=== PATIENT | male | born 1930 | race Caucasian/White ===

== ENCOUNTER → 2020-04-16 | Outpatient (CLI) | payer BC ==
--- NOTE | 2020-04-16 10:53 | RAD ---
Three-view right knee dated 04/16/2020. No comparison available. Clinical data indication: Right knee pain for 4 days. FINDINGS: 3 views the right knee show normal bony alignment. No displaced fracture. No acute osseous or articular abnormality. Vascular calcinosis. Possible small joint effusion. IMPRESSION: 1. No acute bony abnormality. 2. Possible small joint effusion. Electronically signed by: Yoan Dodd MD (04/16/2020 10:50 AM) [id number]
== END | disposition home or self-care (01) ==
LOC: PMG 10:21
PROVIDERS: ATTEND Family Medicine
DX: M25.561 Pain in right knee (principal); E83.59 Other disorders of calcium metabolism
CPT/HCPCS: 73562